=== PATIENT | female | born 1995 | race Caucasian/White ===

== ENCOUNTER 2020-01-30 06:25 | Emergency (ER) | payer BC, SELFPAY ==
--- NOTE | ~2020-01-30 | XR_ITS ---
EXAMINATION: XR chest 2V 01/30/2020 08:02 INDICATION: Chest pain PROCEDURE: 2 view chest COMPARISON: 10/27/2018 FINDINGS: The lungs are clear. The cardiomediastinal silhouette is within normal limits. There are no pleural effusions. There is no pneumothorax suspected. IMPRESSION: 1: NO ACUTE CARDIOPULMONARY DISEASE. Reviewed, dictated and finalized at location A.
[2020-01-30 06:29] VITALS: BP 122/87; PULSE 82; RESP 20; TEMP 36.7; O2SAT 100
[2020-01-30 06:35] VITALS: O2SAT 100
--- NOTE | 2020-01-30 07:11 | ED.ANXIETY ---
HPI - Anxiety General Chief Complaint: Anxiety Stated Complaint: anxiety Time Seen by Provider: 01/30/20 07:08 History of Present Illness HPI narrative: Patient is a 24-year-old female who presents the ER with chest pain/heaviness as well as a diffuse flushed feeling that overcomes her entire body. She reports that this is been going on for 2 to 3 days. After further discussion it sounds like this is been going on for 10- 14 days as she was contacted her PCP and started on Zoloft for these symptoms. Patient does report increased anxiety. She reports she tries to work out and do other activities to keep her mind from thinking about her symptoms. She is currently unemployed which contributes to her symptoms. Patient reports lumbar heaviness is improved with leaning forward. She is taking no [id number] pain medication. She reports the chest discomfort has been persistent and the flushed feeling is intermittent. No family history of cardiac disease at a young age. Related Data Allergies Allergy/AdvReac Type Severity Reaction Status Date / Time No Known Allergies Allergy Verified 01/30/20 06:34 Review of Systems Review of Systems: All systems reviewed & are unremarkable except as noted in HPI and below Constitutional: Constitutional: Denies chills, Denies fever(s) and Denies weakness ENT: Denies nasal congestion and Denies sore throat Cardiovascular: Cardiovascular: Reports chest pain and Denies rapid heart rate Respiratory: Respiratory: Denies chest congestion, Denies cough and Denies dyspnea Gastrointestinal: Gastrointestinal: Denies abdominal pain, Reports nausea and Denies vomiting Neurologic: Reports numbness (Diffuse flushed feeling) Psychiatric: Psychiatric: Reports anxiety and Denies depression PMFSH Past Medical History Medical History (Updated 01/30/20 @ 09:54 by Darwin Thapa MD) Anxiety Depression Surgical History Surgical History (Updated 01/30/20 @ 07:55 by Darwin Thapa MD) No significant past surgical history Family History Family History (Updated 05/25/14 @ 07:13 by DOCTOR UNKNOWN) Grandparent Hypertension Family history of elevated blood lipids Cerebrovascular accident Family history of coronary artery disease Other Family history of malignant neoplasm Social History Social History Smoking status: Never smoker Second hand tobacco smoke exposure: No Alcohol intake: never Exam Narrative: Exam Narrative: GENERAL: Anxious-appearing, well-nourished, and in no acute distress. HEAD: Normocephalic, atraumatic. ENT: Mucous membranes moist. CHEST: Clear to auscultation. No respiratory distress. HEART: Regular rate and rhythm. Normal peripheral pulses. ABDOMEN: Soft, nontender, nondistended. EXTREMITIES: Normal range of motion. No edema. SKIN: Warm, dry, no rash. NEURO:No focal deficits. Alert and oriented x3. Course Course Emergency Course: Symptoms resolved with Atarax. Informed of results. Will give a short course of antibiotic for UTI. Vital Signs Vital signs: Vital Signs Temperature 98.0 F 01/30/20 06:29 Pulse Rate 82 01/30/20 06:29 Respiratory Rate 20 01/30/20 06:29 Blood Pressure 122/87 01/30/20 06:29 Pulse Oximetry 100 01/30/20 06:29 Temperature 98.0 F 01/30/20 06:29 Pulse Rate 78 01/30/20 09:31 Respiratory Rate 15 01/30/20 09:31 Blood Pressure 104/75 01/30/20 09:31 Pulse Oximetry 100 01/30/20 09:31 MDM - Anxiety Lab Data Result diagrams: 01/30/20 07:47 01/30/20 07:47 Labs: Lab Results 01/30/20 01/30/20 01/30/20 Range/Units 07:47 07:47 07:47 WBC 4.1 L (4.5-10.0) K/mm3 RBC 4.69 (4.2-5.4) M/mm3 Hgb 14.4 (12.0-15.0) g/dL Hct 42.6 (37.0-47.0) % MCV 90.8 (80-100) fl MCH 30.7 (26-34) pg MCHC 33.8 (32-36) g/dl RDW 12.0 (11.5-14.5) % Plt Count 201 (150
--- NOTE | 2020-01-30 07:38 | ECG_ITS ---
Measurements Intervals [place] Rate: 77 P: 64 KS: 141 QRS: 46 QRSD: 88 T: 60 QT: 376 QTc: 428 Interpretive Statements SINUS RHYTHM WITH SINUS ARRHYTHMIA NORMAL ECG Electronically Signed On 01-30-2020 7:52:53 CDT by Juan Robert D.O.
[2020-01-30 07:56] LABS: Basophils Percent Auto 0.5 % (0.2-1.2); Eosinophils Absolute Auto 0.2 K/mm3 (0-0.3); Eosinophils Percent Auto 3.7 % (0-4.4); Hematocrit 42.6 % (37.0-47.0); Hemoglobin 14.4 g/dL (12.0-15.0); Immature Granulocyte Absolute 0.02 K/mm3 (0.00-0.031); Immature Granulocyte Percent A 0.5 % (0-0.5); Lymphocytes Percent Auto 19.5 % (18.3-44.2); Mean Corpuscular HGB Conc 33.8 g/dl (32-36); Mean Corpuscular Hemoglobin 30.7 pg (26-34); Mean Corpuscular Volume 90.8 fl (80-100); Mean Platelet Volume 10.2 fl (7.4-10.4); Monocytes Absolute Auto 0.3 K/mm3 (0.1-0.6); Monocytes Percent Auto 7.8 % (2.6-8.5); Neutrophils Absolute Auto 2.8 K/mm3 (1.3-6.7); Platelet Count Result 201 k/mm3 (150-375); Red Blood Count 4.69 M/mm3 (4.2-5.4); White Blood Count 4.1 K/mm3 (4.5-10.0)
[2020-01-30] MEDS: hydrOXYzine pamoate 25 MG CAPSULE PO (08:03)
[2020-01-30 08:04] VITALS: BP 112/84; PULSE 75; RESP 14; O2SAT 98
[2020-01-30 08:06] LABS: Blood Urea Nitrogen 8 mg/dL (7-17); Calcium 8.9 mg/dL (8.4-10.2); Carbon Dioxide 27 mmol/L (22-30); Chloride 107 mmol/L (98-107); Estimated Glomerular Filt Rate > 60; Glucose 97 mg/dL (65-105); Potassium 3.6 mmol/L (3.4-5.0); Sodium 138 mmol/L (137-145)
[2020-01-30 08:11] LABS: Prothrombin Time 12.6 Seconds (11.1-14.7)
[2020-01-30 08:12] LABS: Partial Thromboplastin Time 29.2 SECONDS (22.3-36.8)
[2020-01-30 08:17] LABS: Add Urine Microscopic? YES; Appearance Urine Clear (Clear); Bacteria Urine 1+ /hpf; Bilirubin Urine Negative (Negative); Blood Urine Negative (Negative); Color Urine Yellow (Yellow); Glucose Urine UA Negative (Negative); Ketones Urine Negative (Negative); Leukocyte Esterase Ur Trace LEU/UL (Negative); Mucus Urine Rare /lpf; Nitrate Urine Positive (Negative); Protein Urine Negative (Negative); RBC Urine 0-2 /hpf (0-2); Squamous Epithelial Cell Urine Rare /hpf (Few); Urobilinogen Urine Negative mg/dL (<2.0)
[2020-01-30 08:18] LABS: Troponin I < 0.012 ng/mL (0.000-0.034)
[2020-01-30 09:31] VITALS: BP 104/75; PULSE 78; RESP 15; O2SAT 100
[2020-01-30 10:07] VITALS: BP 93/64; PULSE 68; RESP 18; O2SAT 100
== END 2020-01-30 10:14 | disposition home or self-care (01) ==
PROVIDERS: Emergency Provider Emergency Medicine; PCP Nurse Practitioner Adult Health
DX: F41.9 Anxiety disorder, unspecified (principal); N39.0 Urinary tract infection, site not specified; F32.9 Major depressive disorder, single episode, unspecified
CPT/HCPCS: 36415; 71046; 80048; 81001; 84484; 85025; 85610; 85730; 93005; 99284; A9270

== ENCOUNTER 2025-06-15 12:49 | Outpatient (CLI) | payer BC, SELFPAY ==
--- OUTSIDE RECORDS SUMMARY | 2025-06-15 12:54 | XMS_ITS | Clinical Summary ---
Author Organization [facility] [address] Address [address] [facility] [address] [place] [address] Care Team Providers Care Automatic Pattern Edger Name Role Phone Darwin Olea MD Primary Care Provide r Guillermo Dallas MD Unavailable [phone] Allergies No known active allergies Medications dextroamphetami ne-amphetamine XR (ADDERALL XR) 10 mg 24 hr capsule TAKE 1 CAPSULE BY MOUTH ONCE DAILY IN THE MORNING 03/20/[address] (CYMBALTA) 60 mg capsule Take 1 capsule (60 mg total) by mouth daily 04/29/2025 Active ALPRAZolam (XANAX) 1 mg tablet Take 1 tablet (1 mg total) by mouth 3 (three) times a day as needed 03/17/2025 Active levonorgestreL- ethinyl estrad (LEVORA) 0.15-0.03 mg per tablet Take 1 tablet by mouth daily Active Active Problems Problem Noted Date Diagnosed Date Palpitations 06/13/2025 Assessment & Plan (06/13/2025 8:37 AM CDT): Orders: Lipid panel; Future MCT Mobile Cardiac Telemetry Event Monitor; Future Ambulatory referral to Cardiology; Future Thyroid Function Branch; Future CBC with auto differential; Future Comprehensive metabolic panel; Future Hemoglobin A1c; Future ERIKA (generalized anxiety disorder) Assessment & Plan (06/13/2025 8:37 AM CDT): Fibromyalgia ADHD Encounters Date Type Department Care Team Description 06/13/2025 7:30 AM CDT Office Visit [facility] [id number] Darwin Olea MD Need for influenza vaccination (Primary Dx); Palpitations; Need for hepatitis C screening test; Screening due; ERIKA (generalized anxiety disorder) from Last 3 Months Immunizations Immunization Administration Dates Next Due Influenza, Quadrivalent, Spl it, Preservative Free, Intramuscular 08/20/2020 Influenza, Trivalent, Preservative Free, Intramu scular 06/13/2025,08/05/2024 Influenza, Unspecified 09/16/2016 Tdap 02/24/2017 Medical History Medical History Date Comments ERIKA (generalized anxiety disorder) Adhd Fibromyalgia Exercise-induced asthma Family History Medical History Relation Name Comments Dyslipidemia Father Hypertension Father Dyslipidemia Mother Relation Name Status Comments Father Alive Mother Alive Social History Tobacco Use Types Packs/Day Years Used Date Smoking Tobacco: Never Smokeless Tobacco: Never Tobacco Cessation:Counseling Given: Not Answered Alcohol Use Standard Drinks/Week Comments Yes 0 (1 standard drink = 0.6 oz pur e alcohol) PHQ-2 Answer Date Recorded PHQ-2 Total Score (If total score is 3 or more points, staff should administer the PHQ-9) 0 06/13/2025 AUDIT-C Answer Date Recorded Q1: How often do you have a drink containing alc ohol? Monthly or less 06/13/2025 Q2: How many drinks containi ng alcohol do you have on a typical day when you are drinking? 1 or 2 06/13/2025 Q3: How often do you have si x or more drinks on one occasion? Never 06/13/2025 Comments No Sex and Gender Information Value Date Recorded Sex Assigned at Not on file Legal Sex Female 1:26 PM CDT Gender Identity Not on file Sexual Orientation Not on file Obstetrics History Last Filed Vital Signs Vital Sign Reading Time Taken Comments Blood Pressure 122/80 06/13/2025 7:23 AM CDT Pulse 115 06/13/2025 7:23 AM CDT Temperature 36.6 C (97.8 F) 06/13/2025 7:23 AM CDT Respiratory Rate 18 06/13/2025 7:23 AM CDT Oxygen Saturation 99% 06/13/2025 7:23 AM CDT Inhaled Oxygen Concentration - - Weight 80.1 kg (176 lb 9.6 oz) 06/13/2025 7:23 A M CDT Height 168.9 cm (5' 6.5) 06/13/2025 7:23 AM CDT Body Mass Index 28.08 06/13/2025 7:23 AM CDT Plan of Treatment Health Maintenance Due Date Last Done Comments Cervical Cancer Screening 1994 Hepatitis C Screening 1994 Varicella Vaccines (1 of 2 - 13+ 2-dose series) 2007 Hepatitis B Screening 2012 Regular Well Visit/Exam 18-64 2012 HPV Vaccines (1 - 3-dose SCDM series) 2021 Covid-19 Vaccine (3 - 2024- season) 2025 12/11/2020, 10/18/2020 Depression Screening 06/13/2026 06/13/2025 DTaP/Tdap/Td Vaccine (2 - Td or Tdap) 02/24/2027 02/24/2017 Influenza Vaccine Completed 06/13/2025, , 08/20/2020, Additional history exists Pneumococcal vaccine <65 Aged Out No longer eligible based on patient's age to complete this topic Insurance CHOICE [place] Care Teams Automatic Pattern Edger Relationship Specialty Start Date End Date Darwin Olea MD [address] [place] [address] PCP - General Family Medicine 06/13/25 Guillermo Dallas MD [address] [facility] [address] [place] [address] Referring Physician Obstetrics and Gynecology 06/13/25
[2025-06-15 14:11] LABS: Beta HCG Quantitative < 2.39 mIU/ML
== END 2025-06-15 12:50 | disposition home or self-care (01) ==
LOC: ANHLAB 12:51
PROVIDERS: Visit Provider Obstetrics & Gynecology
DX: N91.2 Amenorrhea, unspecified (principal)
CPT/HCPCS: 36415; 84702